=== PATIENT | male | born 1945 | race Caucasian/White ===

== ENCOUNTER 2018-09-14 14:26 | Outpatient (REF) | payer MEDICARE, SELFPAY ==
[2018-09-14 21:15] LABS: BUN 44 mg/dL (7-18); CREATININE 1.26 mg/dL (0.70-1.30); Calcium 8.6 mg/dL (8.5-10.1); Chloride 105 mmol/L (98-107); Cholesterol 205 mg/dL (50-200); Estimated GFR 55.94 (mL/min/1.73m2); Glucose 102 mg/dL (70-100); HDL Cholesterol 69 mg/dL (40-60); LDL CHOLESTEROL 118 mg/dL (<100); Potassium 4.8 mmol/L (3.5-5.1); Sodium 139 mmol/L (136-145); Triglyceride 102 mg/dL (30-150)
== END 2018-09-14 14:46 ==
LOC: NCHCN 14:26
PROVIDERS: PCP Internal Medicine; Visit Provider Internal Medicine
DX: I10 Essential (primary) hypertension (principal); Z13.6 Encounter for screening for cardiovascular disorders
CPT/HCPCS: 80048; 80061; 83721

== ENCOUNTER 2018-09-20 13:11 | Outpatient (REF) | payer MEDICARE, SELFPAY ==
[2018-09-20 22:03] LABS: Prothrombin Time 9.9 sec (9.3-11.0)
== END 2018-09-20 13:31 ==
LOC: NCHCN 13:11
PROVIDERS: PCP Internal Medicine; Visit Provider Internal Medicine
DX: I67.9 Cerebrovascular disease, unspecified (principal); Z79.01 Long term (current) use of anticoagulants
CPT/HCPCS: 85610

== ENCOUNTER 2018-12-12 14:33 | Outpatient (REF) | payer MEDICARE, SELFPAY ==
[2018-12-13 07:13] LABS: INR 3.3 (0.9-1.1); Prothrombin Time 33.2 sec (9.3-11.0)
== END 2018-12-12 14:53 ==
LOC: NCHCN 14:33
PROVIDERS: PCP Internal Medicine; Visit Provider Internal Medicine
DX: I67.9 Cerebrovascular disease, unspecified (principal); Z79.01 Long term (current) use of anticoagulants
CPT/HCPCS: 85610

== ENCOUNTER 2019-01-29 14:12 | Outpatient (REF) | payer MEDICARE, SELFPAY ==
[2019-01-29 21:17] LABS: Anion Gap 12.6 mmol/L (3-11); BUN 39 mg/dL (7-18); CO2 22.4 mmol/L (21.0-32.0); CREATININE 1.29 mg/dL (0.70-1.30); Calcium 8.6 mg/dL (8.5-10.1); Chloride 104 mmol/L (98-107); Glucose 93 mg/dL (70-100); Sodium 139 mmol/L (136-145)
== END 2019-01-29 14:32 ==
LOC: NCHCN 14:12
PROVIDERS: PCP Internal Medicine; Visit Provider Internal Medicine
DX: I10 Essential (primary) hypertension (principal)
CPT/HCPCS: 80048

== ENCOUNTER 2019-04-27 13:55 | Outpatient (REF) | payer MEDICARE, SELFPAY ==
[2019-04-27 20:52] LABS: INR 3.8 (0.9-1.1); Prothrombin Time 38.2 sec (9.3-11.0)
[2019-04-27 20:54] LABS: C-Reactive Protein 0.09 mg/dL (0.0-0.3)
[2019-04-30 09:13] LABS: Cyclic Citrullinated Peptide <2.5 U/mL (<5.0)
[2019-04-30 11:36] LABS: Rheumatoid Factor 8 IU/mL (<12.5)
== END 2019-04-27 14:15 ==
LOC: NCHCN 13:55
PROVIDERS: PCP Internal Medicine; Visit Provider Internal Medicine
DX: Z79.01 Long term (current) use of anticoagulants (principal); M54.2 Cervicalgia; M19.90 Unspecified osteoarthritis, unspecified site; I25.10 Atherosclerotic heart disease of native coronary artery without angina pectoris
CPT/HCPCS: 86200; 85610; 86140; 86431

== ENCOUNTER 2019-06-01 15:42 | Outpatient (REF) | payer MEDICARE, SELFPAY ==
[2019-06-01 21:00] LABS: Prothrombin Time 21.2 sec (9.3-11.0)
[2019-06-01 21:08] LABS: INR 2.1 (0.9-1.1)
== END 2019-06-01 16:02 ==
LOC: NCHCN 15:42
PROVIDERS: PCP Internal Medicine; Visit Provider Internal Medicine
DX: I25.10 Atherosclerotic heart disease of native coronary artery without angina pectoris (principal); Z79.01 Long term (current) use of anticoagulants
CPT/HCPCS: 85610

== ENCOUNTER 2020-02-05 14:15 | Outpatient (REF) | payer MEDICARE, SELFPAY ==
[2020-02-05 20:59] LABS: Abs Immature Grans 0.01 k/cumm (0.0-0.09); Absolute Basophil Count 0.04 k/cumm (0.0-0.2); Absolute Lymphocyte Count 1.26 k/cumm (1.2-3.4); Absolute Monocyte Count 0.52 k/cumm (0.11-0.7); Absolute Neutrophil Count 4.99 k/cumm (1.2-6.7); Basophils % 0.6; Eosinophils % 1.4; HCT 38.8 % (40.0-50.0); HGB 12.6 g/dL (13.5-17.5); Immature Grans % 0.1 %; Lymphocytes % 18.2; Mean Corp. HGB Concentration 32.5 g/dL (32.0-36.0); Mean Corpuscular Hemoglobin 32.4 pg (27.0-33.0); Mean Corpuscular Volume 99.7 fL (80-95); Mean Platelet Volume 10.5 fL (8.0-11.0); Monocytes % 7.5; Neutrophils % 72.2; Platelet Count 310 x1000/uL (130-400); RBC 3.89 m/cumm (4.50-6.00); RBC Distribution Width 13.4 % (11.8-14.1); White Blood Cell Count 6.92 k/cumm (4.4-10.8)
[2020-02-05 22:24] LABS: BUN 38 mg/dL (7-18); CREATININE 1.11 mg/dL (0.70-1.30); Calcium 8.6 mg/dL (8.5-10.1); Calculated LDL 97 mg/dL (<100); Chloride 103 mmol/L (98-107); Cholesterol 183 mg/dL (<200); Glucose 103 mg/dL (74-106); HDL Cholesterol 71 mg/dL (40-60); Potassium 4.7 mmol/L (3.5-5.1); Sodium 138 mmol/L (136-145); Triglyceride 75 mg/dL (<150)
== END 2020-02-05 14:35 ==
LOC: NCHCN 14:15
PROVIDERS: PCP Internal Medicine; Visit Provider Internal Medicine
DX: I10 Essential (primary) hypertension (principal); N18.3 Chronic kidney disease, stage 3 (moderate); Z13.220 Encounter for screening for lipoid disorders
CPT/HCPCS: 80048; 80061; 85025

== ENCOUNTER 2020-11-21 16:04 | Outpatient (REF) | payer MEDICARE, SELFPAY ==
[2020-11-21 20:54] LABS: Abs Immature Grans 0.02 10^3/uL (0.0-0.06); Absolute Basophil Count 0.03 10^3/uL (0.0-0.2); Absolute Eosinophil Count 0.04 10^3/uL (0.0-0.7); Absolute Lymphocyte Count 0.76 10^3/uL (1.2-3.4); Absolute Monocyte Count 0.54 10^3/uL (0.1-0.8); Absolute Neutrophil Count 6.38 10^3/uL (1.2-6.7); Basophils % 0.4; Eosinophils % 0.5; HCT 36.1 % (40.0-50.0); HGB 12.1 g/dL (13.5-17.5); Immature Grans % 0.3; Lymphocytes % 9.8; MCH 33.2 pg (27.0-33.0); MCHC 33.5 % (32.0-36.0); MCV 99.2 fL (80-95); MPV 10.8 fL (8.0-11.0); Monocytes % 6.9; Neutrophils % 82.1; Nucleated RBC 0 %; Platelet Count 255 10^3/uL (130-400); RBC 3.64 10^6/uL (4.36-5.78); RDW-SD 47.5 fL; WBC 7.77 10^3/uL (4.4-10.8)
[2020-11-21 21:11] LABS: ALT 29 U/L (16-63); AST 24 U/L (15-37); Albumin 3.6 g/dL (3.4-5.0); Alkaline Phosphatase 101 U/L (46-116); Anion Gap 8.9 mmol/L (3-11); BUN 41 mg/dL (7-18); Bilirubin, Total 0.7 mg/dL (0.2-1.0); CO2 25.1 mmol/L (21.0-32.0); CREATININE 1.2 mg/dL (0.70-1.30); Calcium 8.7 mg/dL (8.5-10.1); Chloride 103 mmol/L (98-107); Estimated GFR 58.71 (mL/min/1.73m2); Glucose 122 mg/dL (74-106); Potassium 4.9 mmol/L (3.5-5.1); Sodium 137 mmol/L (136-145); TSH 0.88 uIU/mL (0.36-3.74); Total Protein 6.7 g/dL (6.4-8.2)
== END 2020-11-21 16:05 | disposition home or self-care (01) ==
LOC: NCHCN 16:04
PROVIDERS: PCP Internal Medicine; Visit Provider Internal Medicine
DX: R61 Generalized hyperhidrosis (principal)
CPT/HCPCS: 80053; 84443; 85025

== ENCOUNTER 2021-01-12 15:18 | Outpatient (REF) | payer MEDICARE, SELFPAY ==
[2021-01-12 21:58] LABS: Abs Immature Grans 0.02 10^3/uL (0.0-0.06); Absolute Basophil Count 0.06 10^3/uL (0.0-0.2); Absolute Eosinophil Count 0.12 10^3/uL (0.0-0.7); Absolute Lymphocyte Count 0.79 10^3/uL (1.2-3.4); Absolute Monocyte Count 0.55 10^3/uL (0.1-0.8); Absolute Neutrophil Count 5.41 10^3/uL (1.2-6.7); Basophils % 0.9; Eosinophils % 1.7; HCT 39.7 % (40.0-50.0); Immature Grans % 0.3; Lymphocytes % 11.4; MCH 32.7 pg (27.0-33.0); MCHC 32.7 % (32.0-36.0); MPV 10.7 fL (8.0-11.0); Monocytes % 7.9; Neutrophils % 77.8; Nucleated RBC 0 %; Platelet Count 287 10^3/uL (130-400); RBC 3.97 10^6/uL (4.36-5.78); RDW 12.4 % (11.8-14.1); RDW-SD 46.2 fL; WBC 6.95 10^3/uL (4.4-10.8)
[2021-01-12 22:18] LABS: Hemoglobin A1C 5.5 % (<5.7)
[2021-01-12 22:38] LABS: ALT 26 U/L (16-63); AST 20 U/L (15-37); Albumin 4.3 g/dL (3.4-5.0); Alkaline Phosphatase 114 U/L (46-116); Anion Gap 11.8 mmol/L (3-11); BUN 33 mg/dL (7-18); Bilirubin, Total 0.7 mg/dL (0.2-1.0); CO2 26.2 mmol/L (21.0-32.0); CREATININE 1.2 mg/dL (0.70-1.30); Calcium 9.4 mg/dL (8.5-10.1); Calculated LDL 92 mg/dL (<100); Chloride 105 mmol/L (98-107); Cholesterol 188 mg/dL (<200); Estimated GFR 58.71 (mL/min/1.73m2); Glucose 101 mg/dL (74-106); HDL Cholesterol 84 mg/dL (40-60); Potassium 4.9 mmol/L (3.5-5.1); Sodium 143 mmol/L (136-145); TSH 1.01 uIU/mL (0.36-3.74); Total Protein 7.4 g/dL (6.4-8.2); Triglyceride 64 mg/dL (<150); Vitamin B12 831 pg/mL (193-986)
== END 2021-01-12 15:19 | disposition home or self-care (01) ==
LOC: NCHCN 15:18
PROVIDERS: PCP Internal Medicine; Visit Provider Internal Medicine
DX: I10 Essential (primary) hypertension (principal); R61 Generalized hyperhidrosis; I63.9 Cerebral infarction, unspecified; R73.01 Impaired fasting glucose; D53.9 Nutritional anemia, unspecified
CPT/HCPCS: 80053; 80061; 82607; 83036; 84443; 85025

== ENCOUNTER 2021-01-14 20:19 | Outpatient (REF) | payer MEDICARE, SELFPAY ==
[2021-01-15 17:23] LABS: PSA, Screening 0.3 ng/mL (0.0-6.5)
== END 2021-01-14 20:20 | disposition home or self-care (01) ==
LOC: NCHCN 20:19
PROVIDERS: PCP Internal Medicine; Visit Provider Internal Medicine
DX: Z12.5 Encounter for screening for malignant neoplasm of prostate (principal)
CPT/HCPCS: 84153